=== PATIENT | female | born 1985 | race Caucasian/White ===

== ENCOUNTER → 2019-02-02 | Outpatient (CLI) | payer BC ==
--- NOTE | 2019-02-02 10:34 | KCIC ---
EYE FOR FOREIGN BODY History: MRI screening evaluation. Previous injury to left eye with metal. Technique: 2 views of the orbits. Comparison: None. Findings: No radiopaque foreign bodies. Normal alignment. Patent sinuses. Impression: 1. No radiopaque foreign bodies. Electronically signed by: Jose Cleveland DO (02/02/2019 10:30 AM) [email or web address]
--- NOTE | 2019-02-02 12:40 | KCIC ---
BRAIN W/O CONTRAST History: Dizziness. Weakness. Numbness. Migraines. Technique: Multiplanar, multi sequential MR imaging was performed of the brain without contrast. Comparison: None Findings: No acute infarct. No intracranial hemorrhage. Focal dilatation of the body of the left lateral ventricle, may relate to developmental asymmetry or ex vacuo dilatation from prior insult. No evidence of adjacent gliosis or encephalomalacia. Minimal punctate foci of T2/FLAIR hyperintensity within the hemispheric white matter. Imaged orbits are unremarkable. Imaged paranasal sinuses and mastoid air cells are clear. Impression: 1. No acute intracranial abnormality. 2. Focal dilatation of the left lateral ventricular body, may relate to a developmental asymmetry of the lateral ventricles or ex vacuo dilatation due to prior insult. Comparison with prior imaging studies would be of benefit. 3. Minimal nonspecific white matter changes, can be seen in normal individuals, related to migraine headaches, sequela chronic microvascular ischemia or less likely demyelinating disease or vasculitis. Electronically signed by: Jose Cleveland DO (02/02/2019 12:37 PM) [email or web address]
== END | disposition home or self-care (01) ==
LOC: KCIC MRI 10:09
PROVIDERS: ATTEND Psychiatry & Neurology Neurology with Special Qualifications in Child Neurology
DX: G43.009 Migraine without aura, not intractable, without status migrainosus (principal); R42 Dizziness and giddiness; R53.1 Weakness; R20.0 Anesthesia of skin; F10.20 Alcohol dependence, uncomplicated
CPT/HCPCS: 70030; 70551

== ENCOUNTER → 2021-09-23 | Outpatient (CLI) | payer BC ==
--- NOTE | 2021-09-23 15:56 | KCIC ---
EXAM: Lumbar spine MRI without contrast. HISTORY: Pain. TECHNIQUE: Multiplanar, multisequence magnetic resonance imaging of the lumbar spine was performed wi thout contrast. COMPARISON: None. FINDINGS: There is mild lumbar scoliosis. There is no listhesis. There is disc desiccation at L5-S1. There are few small osseous hemangiomas. There is no suspicious osseous lesion. There is no acute or subacute fracture. The conus terminates at L2. At L1-L2, L2-L3, L3-L4 and L4-L5, there is mild bilateral facet arthropathy. There is no stenosis. At L5-S1, there is a shallow broad-based posterior central to right paracentral disc protrusion and a nnular tear with minimal inferior extrusion. There is also a suspected left lateral disc osteophyte c omplex. These are superimposed on a disc bulge and endplate remodeling. There is mild bilateral facet arthropathy. There is mild left greater than right foraminal stenosis with abutment the exiting L5 n erve roots. There is mild central canal stenosis and narrowing of the lateral recesses with abutment of the traversing S1 nerve roots. IMPRESSION: Degenerative changes L5-S1, described in detail above. This is associated with mild left greater than right foraminal stenosis and central canal stenosis and abutment the exiting and finesse sing L5 and S1 nerve roots. Electronically signed by: Jannet Kelly MD (09/23/2021 3:53 PM) [id number]
== END ==
LOC: KCIC MRI 13:03
PROVIDERS: ATTEND Physician Assistant
DX: M47.817 Spondylosis without myelopathy or radiculopathy, lumbosacral region (principal); M51.27 Other intervertebral disc displacement, lumbosacral region; M48.8X7 Other specified spondylopathies, lumbosacral region; D18.09 Hemangioma of other sites; M48.07 Spinal stenosis, lumbosacral region
CPT/HCPCS: 72148